=== PATIENT | female | born 1960 | race Caucasian/White ===

== ENCOUNTER 2022-02-11 09:34 | Outpatient (CLI) | payer OTHER, SELFPAY ==
[2022-02-11 13:41] LABS: SARS PCR* Negative SARS-CoV-2 (Negative)
== END 2022-02-11 09:35 | disposition home or self-care (01) ==
LOC: LONREF 09:34
PROVIDERS: PCP Physician Assistant Medical; Visit Provider Family Medicine
DX: Z11.52 Encounter for screening for COVID-19 (principal)
CPT/HCPCS: 87635

== ENCOUNTER 2022-02-14 10:15 | Outpatient (CLI) | payer OTHER, SELFPAY ==
--- NOTE | 2022-02-14 11:30 | W.ANESCHARGE ---
Anesthesia Charges Start Date/Time Anesthesia Start Date: 02/14/22 Anesthesia Start Time: 10:50 Stop Date/Time Anesthesia Stop Date: 02/14/22 Anesthesia Stop Time: 11:27 Summary Emergency: No
--- NOTE | 2022-02-14 11:33 | W.ANESCHARGE ---
Anesthesia Charges Start Date/Time Anesthesia Start Date: 02/14/22 Anesthesia Start Time: 10:50 Stop Date/Time Anesthesia Stop Date: 02/14/22 Anesthesia Stop Time: 11:27 Summary Emergency: No
== END 2022-02-14 10:16 | disposition home or self-care (01) ==
LOC: OP CLINIC 10:16
PROVIDERS: PCP Physician Assistant Medical; Visit Provider Surgery
DX: Z12.11 Encounter for screening for malignant neoplasm of colon (principal); K64.9 Unspecified hemorrhoids; Z86.010 Personal history of colon polyps
CPT/HCPCS: 00811; 00812; 45378; J2704